=== PATIENT | male | born 1935 ===

== ENCOUNTER 2016-07-25 12:00 | Inpatient (IN) | payer MEDICARE, OTHER ==
[~2016-07-25] VITALS: Ht 175.3 cm; Wt 76.1 kg
--- NOTE | ~2016-07-25 | DS ---
PATIENT'S NAME: [facility] AGE: 81 Y [address] ROOM: [place] [address] LOCATION: GPCU ADMIT DATE: 07/25/2016 Discharge Summary DISCHARGE DATE: 07/27/2016 FAMILY PHYSICIAN: Physician, Unknown ATTENDING PHYSICIAN: Mahesh Barragan V PRINCIPAL DIAGNOSES: 1. Upper gastrointestinal bleed. 2. Duodenal ulcer. 3. Cirrhosis. 4. Chronic hepatitis C. 5. Lower extremity venous insufficiency with ulcers. 6. Acute blood loss anemia. HOSPITAL COURSE: This is an 81-year-old male with a history of cirrhosis and previous variceal bleeding who presents to the hospital and admitted to the ICU after presenting with severe anemia with hemoglobin of less than 5. The patient was emergently admitted to the ICU and evaluated by GI. The patient was given blood transfusions to correct his anemia and an emergent EGD was done, which showed duodenal ulcers with signs of bleeding. The patient was subsequently closely monitored during hospitalization. Hemoglobin stayed stable about 8 during his hospital stay. The patient has been on b.i.d. PPI for the past day and did not have any signs or symptoms of recurrent bleed. At this point, the patient is evaluated and cleared by GI to be discharged. The patient is tolerating p.o. intake very well without any issues. The patient will be discharged on Protonix b.i.d. and will follow up with primary care physician in 1 week. PHYSICAL EXAMINATION: VITAL SIGNS: Stable. Awake, alert, and oriented x3, in no acute distress. CHEST: Clear to auscultation bilaterally. HEART: S1, S2. Regular rate and rhythm. ABDOMEN: Soft, nontender, nondistended. EXTREMITIES: Bilateral venous insufficiency ulcers that are healing. DISPOSITION: Home. MD JEN LORENZANA/jimenez PATIENT'S NAME: [facility] AGE: 81 Y [address] ROOM: [place] [address] LOCATION: GPCU ADMIT DATE: 07/25/2016 Discharge Summary DISCHARGE DATE: 07/27/2016 FAMILY PHYSICIAN: Man Scott ATTENDING PHYSICIAN: Mahesh Barragan V /[id number] d: 07/28/16 0502 t: 07/29/16 1823, DISCHARGE SUMMARY
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
--- NOTE | ~2016-07-25 | CON ---
PATIENT'S NAME: [facility] AGE: 81 Y [address] ROOM: [place] [address] LOCATION: GPCU ADMIT DATE: 07/25/2016 Consultation DISCHARGE DATE: FAMILY PHYSICIAN: PHYSICIAN, UNKNOWN ATTENDING PHYSICIAN: LATOYA CHEUNG V DATE OF CONSULTATION: 07/25/2016 REFERRING PHYSICIAN: Elieser Person MD REFERRING PHYSICIAN: Latoya Cheung M.D. CONSULTING PHYSICIAN: Elieser Person M.D. REASON FOR CONSULTATION: Possible upper GI bleeding. HISTORY OF PRESENT ILLNESS: The patient is a pleasant 81-year-old white male, who presented to the [facility] today. His complaint at that time was melena and feeling short of breath. He was found to have a low hemoglobin. Overnight, he was transfused. His hemoglobin did come up to 8.6 and then it dropped down to 7.6. When Dr. Altman scoped him this morning, he was found to have a duodenal ulcer on the posterior wall. There was also a slow ooze from it according to Dr. Altman. The patient was transferred here for higher level of care. The patient does give a history of recent NSAID intake for his leg cellulitis. He has no prior history of GI bleeding. He does have a history of melena recently. There is no prior history of similar problems. PAST MEDICAL HISTORY/PAST SURGICAL HISTORY: Significant for herniorrhaphy. He has also had right hip fracture repaired. He also had a carpal tunnel release. He has had multiple colonoscopies in view of his family history of colon cancer. He also has a personal history of colon polyps according to him. He has a history of skipped beat occasionally. There is also history of renal calculi. ALLERGIES: HE HAS NO KNOWN MEDICAL ALLERGIES. MEDICATIONS: Medication adames, he has received Protonix and vancomycin in the emergency room. He had taken Levaquin recently. He also takes multiple multivitamins and gabapentin. PATIENT'S NAME: [facility] AGE: 81 Y [address] ROOM: [place] [address] LOCATION: GPCU ADMIT DATE: 07/25/2016 Consultation DISCHARGE DATE: FAMILY PHYSICIAN: PHYSICIAN, UNKNOWN ATTENDING PHYSICIAN: LATOYA CHEUNG V FAMILY HISTORY: He has a strong family history of colon cancer. Mother of colon cancer at age 45. He has had regular screening exams done since then. He denies any of this pertinent family history. PSYCHOSOCIAL: Noncontributory. REVIEW OF SYSTEMS: A detailed 10-point review of systems was done. It was found to be negative other than what is mentioned in the history of present illness and past medical history. Denies any history of diabetes, cardiac disease, or lung problems. He is a remote smoker, quit at the age of 60. He has had some problems with cellulitis recently. He said he did have a Doppler of the lower extremity done. He was found to have some compromise to the blood circulation to right leg. PHYSICAL EXAMINATION: GENERAL: Today, he is alert, awake, appears to be in no acute distress. He does have pallor but no icterus. VITAL SIGNS: Blood pressure is 136/69, heart rate 60 per minute, and O2 saturation 100%. CHEST: Good air entry bilaterally. ABDOMEN: Soft. There is a small hernia scar at the left groin. He also has small umbilical hernia. MUSCULOSKELETAL: He has significant cellulitis of the lower extremities along with some edema. No upper extremity deformities or injuries are noted. NEUROLOGIC: Grossly nonfocal. HEAD/EENT: Oral cavity is normal. Nasal passages are clear. NECK: No thyromegaly is felt. No masses are felt. CARDIOVASCULAR: He does appear to have fairly normal upper extremity pulses. The lower extremities are limited exam because of ointment applied to the lower extremity. LABORATORY DATA: His labs are pending at this time. As mentioned above, the last hemoglobin was 7.[address] Altman. IMPRESSION: The patient with a history of gastrointestinal bleeding, noted to have a bleeding ulcer in the duodenum by the endoscopist at the [facility]. I will be performing an EGD today. The procedure of upper endoscopy was explained in detail to the patient. All risks, including but not limited to, bleeding, perforation, possible need for surgery were explained. Chances of failure to control the bleeding as well as need for further intervention by surgery or Interventional Radiology PATIENT'S NAME: SHEREE ARCOS [facility] AGE: 81 Y [address] ROOM: [place] [address] LOCATION: GPCU ADMIT DATE: 07/25/2016 Consultation DISCHARGE DATE: FAMILY PHYSICIAN: PHYSICIAN, UNKNOWN ATTENDING PHYSICIAN: LATOYA CHEUNG V was explained clearly. Informed consent was then obtained. The patient will be continued the IV Protonix, patient will continue to have his hemoglobin followed. We will be happy to follow along the patient with you. AGUSTINF MD LULU CULVER/jimenez /[id number] d: 07/25/162018 t: 07/27/16 1605, CONSULTATION REPORT
--- NOTE | ~2016-07-25 | HP ---
PATIENT'S NAME: [facility] AGE: 81 Y [address] ROOM: [address] [place], [place] [address] LOCATION: GPCU ADMIT DATE: 07/25/2016 History & Physical DISCHARGE DATE: FAMILY PHYSICIAN: PHYSICIAN, UNKNOWN ATTENDING PHYSICIAN: LATOYA CHEUNG V DATE OF SERVICE: CHIEF COMPLAINT: Transfer for higher level of care. HISTORY OF PRESENT ILLNESS: The patient is an 81-year-old male, who was admitted to [facility] with melena and hemoglobin of 4.9 yesterday. He has undergone transfusion of 3 units and an EGD earlier today. He was found to have 2 duodenal ulcers, one of them was posterior wall and oozing. He was discussed with Dr. Person and transferred to [facility] for higher level of care. He was hemodynamically stable throughout his hospitalization in [place] as well as throughout his transfer. At this point, the patient's only complaint is discomfort around his lower extremities. He does have some chronic wounds as well as chronically appearing venous stasis changes there. He denies any fevers, chills, nausea, or vomiting, but does admit to some dyspnea and increased fatigability associated with his anemia. REVIEW OF SYSTEMS: All systems have been reviewed and negative aside from pertinent positives mentioned above. PAST MEDICAL HISTORY: The patient is not a very good historian, but volunteers chronic lower extremity wounds, for which he has recently been treated with antibiotics. Aside from that, he volunteers no past medical history. PAST SURGICAL HISTORY: He volunteers no recent surgical history. CURRENT MEDICATIONS: The patient told me he has none, but transferring records specifies; 1. Echinacea. 2. Levaquin. 3. Neurontin. 4. Vernon. PATIENT'S NAME: [facility] AGE: 81 Y [address] ROOM: [address] [place], [place] [address] LOCATION: GPCU ADMIT DATE: 07/25/2016 History & Physical DISCHARGE DATE: FAMILY PHYSICIAN: PHYSICIAN, UNKNOWN ATTENDING PHYSICIAN: LATOYA CHEUNG V 5. Potassium supplements. 6. Vitamin B12, B6, and vitamin E. SOCIAL HISTORY: He endorses a very distant and likely noncontributory history of tobacco use. 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 FAMILY HISTORY: Reviewed and is noncontributory due to advanced age and known underlying etiology for his presentation. PHYSICAL EXAMINATION: VITAL SIGNS: Blood pressure 125/86, heart rate 70s to 90s, saturating 97% on room air, afebrile, and respirations 16. GENERAL: Appears as a frail, elderly middle-aged male, in no acute distress. NEUROLOGIC: Nonfocal. HEENT: Eye exam shows pupils are equal and reactive to light. LYMPHATIC: Shows no cervical lymphadenopathy. ENDOCRINE: Shows no thyromegaly. LUNGS: Clear to auscultation. HEART: Heart rate is regular with no appreciable murmurs, gallops, or rubs. GI: Abdomen is soft, slightly tender. Normoactive bowel sounds. : Reveals no costovertebral angle tenderness. VASCULAR: Shows 1+ pedal pulses on the left lower extremity, 1+ dorsalis pedis pulse on the right lower extremity, and very poorly palpable posterior tibial on the right lower extremity. SKIN: Reveals changes of chronic venous stasis as well as some eroding ulcers. Eroding ulcers felt over bony surfaces on his ankles bilaterally. PSYCHIATRIC: Reveals appropriate mood, cognition, and affect. LABORATORY DATA: No studies are available from [facility] yet. ASSESSMENT AND PLAN: This is an 81-year-old male, who will be admitted with; 1. Acute blood loss anemia. We will check the patient's hemoglobin and transfuse as needed. 2. Upper gastrointestinal bleed. We will start him on a PPI drip. He has already been seen by Dr. Person and followup endoscopy is planned. 3. Chronic venous stasis. We will request his records from his PMD or department of transportation, which is where the patient gets some of his exams done. We may consider doing a 2-dimensional echocardiogram to rule out heart failure. 4. Wounds over his lower extremities. We will request a Wound Care as well as a Vascular Surgery consult as some of these wounds do look as arterial PATIENT'S NAME: SHEREE ARCOS [facility] AGE: 81 Y [address] ROOM: [address] [place], [place] [address] [facility] AD[facility] DATE: 07/25/2016 History & Physical DISCHARGE DATE: FAMILY PHYSICIAN: PHYSICIAN, UNKNOWN ATTENDING PHYSICIAN: KAGANAS,LATOYA V insufficiency despite adequate circulation. 5. Deep venous thrombosis prophylaxis will be nonpharmacologic. 6. Additional management depend on clinical course. Time dedicated to this patient's encounter is 35 minutes. MD REJI WALDROP/jimenez /[id number] D: 941 T: 303 HISTORY & PHYSICAL
[2016-07-25] MEDS ORDERED: VITAMIN E400 UNI2 PO (14:57)
[2016-07-25] MEDS ORDERED: VITAMIN B-625 MG PO (14:58)
[2016-07-25] MEDS ORDERED: VITAMIN B-12500 MCG PO (14:58)
[2016-07-25] MEDS ORDERED: ECHINACEA125 MG PO (14:58)
[2016-07-25] MEDS ORDERED: POTASSIUM99 M1 PO (14:59)
[2016-07-25] MEDS ORDERED: NEURONTIN100 MG PO (15:00)
[2016-07-25] MEDS ORDERED: [UNRECOGNIZED DRUG - OTHER] PO (15:02)
[2016-07-25] MEDS ORDERED: LEVAQUIN500 MG PO (15:07)
[2016-07-25 15:09] LABS: BASOPHIL % 0.1 %; EOSINOPHIL # 0.3 K/uL (0.0-0.5); EOSINOPHIL % 2.1 %; HEMATOCRIT 31.5 % (33.0-50.0); IMMATURE GRANULOCYTE # 0.1 K/uL (0.0-0.3); IMMATURE GRANULOCYTE % 0.7 %; LYMPHOCYTE # 1.5 K/uL (0.8-4.0); LYMPHOCYTE % 11.5 %; MCH 29.3 pg (27.0-34.0); MCHC 31.7 gm/dL (32.0-36.5); MCV 92.4 fl (83.0-98.0); MONOCYTE # 0.6 K/uL (0.0-1.0); MONOCYTE % 4.5 %; MPV 9.1 fl (9.4-12.4); NEUTROPHIL # (ANC) 10.9 K/uL (1.4-9.0); NEUTROPHIL % 81.1 %; NRBC % 0 /100WBC (0-0.00); PLATELET COUNT 152 K/uL (150-450); RBC 3.41 M/uL (3.50-5.50); RDW-CV 18.2 % (11.9-14.6); WBC 13.4 K/uL (4.0-11.0)
[2016-07-25 15:17] LABS: PROTIME 10.8 SECONDS (9.6-11.1)
[2016-07-25 15:21] LABS: BLOOD UREA NITROGEN 25 mg/dL (6-24); CHLORIDE 111 mMol/L (96-110); CO2 29 mMol/L (22-32); ESTIMATED GFR (MDRD EQUATION) > 60; PHOSPHORUS 2.5 mg/dL (2.5-4.9); POTASSIUM 3.3 mMol/L (3.7-5.1)
[2016-07-25 15:22] LABS: ANION GAP 11.3 (10.0-19.0); CALCIUM 7.2 mg/dL (8.5-10.5); SODIUM 148 mMol/L (135-145)
--- NOTE | 2016-07-25 17:35 | NUR ---
Patient admit to ICU from [place] d/t decreased HGB and duodenal ulcers. Upon arrival patient was on room air with lungs clear, SR with SBP stable. Alert and oriented x3, denies any N/T or pain at this time. Vance patent. Bowels active. PIV x2 to L)FA, saline locked. EGD completed by Dr Person, he did not see any active bleeds. Ok'd for clear liquid diet. KCl started, patient c/o burning in both PIVs, will insert new IV and continue treatment. Ok to transfer to PCU
--- NOTE | 2016-07-26 05:13 | NUR ---
Significant Event: Patient alert and oriented x3. SBP 107-127. On RA-1L when asleep. All other vital signs stable. Protonix drip at 10 mls/hr to left AC PIV. Bowel sounds active. No complaints of pain this shift. Up with 1 assist with gait belt in room. Vance patent with 675ml uop. Clear liquid diet continues. Dressing applied to bilateral legs. Calm and cooperative with all cares. Follow up: WOC consult today. Will continue to monitor per plan of care.
[2016-07-26 10:21] LABS: HEMATOCRIT 26.8 % (33.0-50.0); HEMOGLOBIN 8.6 g/dL (11.0-16.0); MCH 29.9 pg (27.0-34.0); MCHC 32.1 gm/dL (32.0-36.5); MCV 93.1 fl (83.0-98.0); PLATELET COUNT 126 K/uL (150-450); RBC 2.88 M/uL (3.50-5.50); RDW-CV 17.6 % (11.9-14.6); WBC 8.6 K/uL (4.0-11.0)
[2016-07-26 10:35] LABS: BLOOD UREA NITROGEN 15 mg/dL (6-24); CHLORIDE 113 mMol/L (96-110); CO2 25 mMol/L (22-32); CREATININE 0.9 mg/dL (0.6-1.3); ESTIMATED GFR (MDRD EQUATION) > 60; POTASSIUM 3.6 mMol/L (3.7-5.1)
[2016-07-26 10:36] LABS: ANION GAP 14.6 (10.0-19.0); SODIUM 149 mMol/L (135-145)
[2016-07-26 10:44] LABS: ABSOLUTE NEUTROPHIL CT (ANC) 7.6 K/uL (1.4-9.0); BANDED NEUTROPHIL # 0.1 K/uL (0.0-0.1); BANDED NEUTROPHILS % 1 %; LYMPHOCYTE # 0.4 K/uL (0.8-4.0); LYMPHOCYTE % 5 %; MONOCYTE # 0.3 K/uL (0.0-1.0); SEGMENTED NEUTROPHIL # 7.5 K/uL (1.4-9.0); SEGMENTED NEUTROPHIL % 87 %
--- NOTE | 2016-07-26 12:12 | NUR ---
Introduced self and care management services to patient. Lives in [place] with . Plans on going home on discharge, denies anticipating any dc planning needs. Independent at home. Will follow.
--- NOTE | 2016-07-26 16:21 | NUR ---
Significant event: A&Ox3. VSS, RA. Denies pain. Clear liquid diet continues, tolerating well. Up 1 assist, currently in chair. Bowel sounds active, no BM today. Crisostomo patent, had 800 ml UOP. Woc in to see patient, covered open sores with allevyn dressing, tubigrip applied. Protonix gtt continues to L) AC. D/C'd L) FA IV, due to leaking. Follow Up: Monitor hemoglobin, d/c crisostomo in early AM?
[2016-07-26 17:59] LABS: HEMATOCRIT 28.6 % (33.0-50.0); HEMOGLOBIN 9.1 g/dL (11.0-16.0)
--- NOTE | 2016-07-27 04:23 | NUR ---
Significant Event: A/O x3. Afebrile. Denies pain. VSS on RA. Bowel sounds normoactive. SBP 110s. 800 uop. Cooperative with cares.
[2016-07-27 05:36] LABS: HEMATOCRIT 27.9 % (33.0-50.0); HEMOGLOBIN 8.8 g/dL (11.0-16.0)
[2016-07-27 06:33] LABS: ANION GAP 10.7 (10.0-19.0); BLOOD UREA NITROGEN 13 mg/dL (6-24); CHLORIDE 112 mMol/L (96-110); CO2 26 mMol/L (22-32); CREATININE 0.9 mg/dL (0.6-1.3); ESTIMATED GFR (MDRD EQUATION) > 60; MAGNESIUM 2.2 mg/dL (1.3-2.6); POTASSIUM 3.7 mMol/L (3.7-5.1); SODIUM 145 mMol/L (135-145)
[2016-07-27 06:35] LABS: CALCIUM 7.4 mg/dL (8.5-10.5)
[2016-07-27] MEDS ORDERED: FEOSOL325 MG PO (13:00)
[2016-07-27] MEDS ORDERED: PROTONIX40 MG PO (13:01)
[2016-07-27 13:42] LABS: HEMATOCRIT 27.3 % (33.0-50.0); HEMOGLOBIN 8.4 g/dL (11.0-16.0)
--- NOTE | 2016-07-27 15:18 | NUR ---
D/C ORDERS RECIEVED. REVIEWED WITH THE PATIENT AND HIS FAMILY ALL D/C INFORMATION INCLUDING MEDICATIONS, FOLLOW-UP APPT-SCHEDULED FOR HIM, AND INSTRUCTIONS. RADHA PRINTOUTS GIVEN ON NEW MEDS AND D/C INFORMATION FOR GI BLEED. BOTH THE PATIENT AND HIS FAMILY VERBALIZED UNDERSTANDING OF ALL D/C INFORMATION. PIV D/C'D AND CATHETER INTACT. VACCINES ARE UP TO DATE. TAKEN VIA W/C AND TRANSPORT TEAM TO THE FRONT ENTRANCE OF THE HOSPITAL AND HIS FAMILY TO DRIVE HIM HOME.
== END 2016-07-27 15:24 | disposition disaster alternative care site (69) | DRG 378 ==
LOC: GICU 12:00 → GPCU 13:58 → GICU 17:37 → GPCU 18:54
PROVIDERS: Family Medicine; Internal Medicine Gastroenterology; Registered Nurse; ADMIT Internal Medicine
PROC: 0DJ08ZZ Inspection of Upper Intestinal Tract, Via Natural or Artificial Opening Endoscopic (ICD-10-PCS; principal; 2016-07-25)
DX: K26.4 Chronic or unspecified duodenal ulcer with hemorrhage (principal); D62 Acute posthemorrhagic anemia; K74.60 Unspecified cirrhosis of liver; K25.9 Gastric ulcer, unspecified as acute or chronic, without hemorrhage or perforation; I83.228 Varicose veins of left lower extremity with both ulcer of other part of lower extremity and inflammation; I87.8 Other specified disorders of veins; B18.2 Chronic viral hepatitis C; Z87.891 Personal history of nicotine dependence; K26.9 Duodenal ulcer, unspecified as acute or chronic, without hemorrhage or perforation; K44.9 Diaphragmatic hernia without obstruction or gangrene
CPT/HCPCS: C9113; J3480; J7030; J7040; J7050